=== PATIENT | female | born 1985 | race Asian ===

== ENCOUNTER 2018-09-28 10:42 | Emergency (ER) | payer OTHER ==
[2018-09-28 10:57] VITALS: BP 136/91; PULSE 89; TEMP 98.1; BMI 29.0
[2018-09-28] MEDS ORDERED: HIV POST EXPOSURE PROPHYLAXIS KIT NR ONE (11:29)
[2018-09-28] MEDS ORDERED: AZITHROMYCIN 250 MG TABLET PO ONE (11:29)
--- NOTE | 2018-09-28 11:31 | PDOC ---
History of Present Illness - General Chief Complaint: Vaginal Sxs Stated Complaint: MEDICATION Time Seen by Provider: 09/28/18 10:59 History Source: Patient Exam Limitations: No Limitations - History of Present Illness Initial Comments: 09/28/18 11:30 Last night and had unprotected sex with an unknown person and is unable to identify. Post exposure, HIV disease and he came in requesting all testing and treatment. Understands will need testing for HIV, hepatitis, gonorrhea and chlamydia, syphilis and baseline labs will be taken possible continuation of PEP which she has requested denies vaginal drainage discharge, states was a conceptual experience but nose was related to her intoxication which she denies being problematic. Timing/Duration: unsure, 24 hours Severity: mild, moderate Associated Symptoms: reports: denies symptoms Past History - Travel Traveled outside of the country in the last 30 days: No Close contact w/someone who was outside of country & ill: No - Past Medical History Allergies/Adverse Reactions: Allergies Allergy/AdvReac Type Severity Reaction Status Date / Time No Known Allergies Allergy Verified 09/28/18 10:51 Home Medications: Ambulatory Orders Albuterol Sulfate [Albuterol Sulfate Hfa] 1 - 2 puff IH Q4H 09/28/18 Raltegravir [Isentress] 400 mg PO BID #46 tab 09/28/18 Asthma: Yes COPD: No - Surgical History Gastric Stapling: No - Immunization History Immunization Up to Date: No - Suicide/Smoking/Psychosocial Hx Smoking History: Unknown if ever smoked Have you smoked in the past 12 months: No Information on smoking cessation initiated: No Hx Alcohol Use: No Drug/Substance Use Hx: No Review of Systems - Review of Systems Able to Perform ROS?: Yes Is the patient limited Mexican proficient: Yes Constitutional: Yes: See HPI. No: Symptoms Reported HEENTM: Yes: See HPI. No: Symptoms Reported Respiratory: No: See HPI : Yes: See HPI. No: Symptoms Reported, Burning, Dysuria, Discharge, Hematuria Musculoskeletal: Yes: See HPI. No: Symptoms Reported Integumentary: No: Symptoms Reported Neurological: Yes: See HPI. No: Symptoms reported All Other Systems: Reviewed and Negative *Physical Exam - Vital Signs Last Vital Signs Temp Pulse Resp BP Pulse Ox 98.1 F 89 18 136/91 100 09/28/18 10:47 09/28/18 10:47 09/28/18 10:47 09/28/18 10:47 09/28/18 10:47 - Physical Exam General Appearance: Yes: Nourished, Appropriately Dressed. No: Apparent Distress HEENT: positive: TRISTAN, Normal ENT Inspection, TMs Normal, Pharynx Normal Neck: positive: Supple Respiratory/Chest: positive: Lungs Clear Female Pelvic Exam: positive: normal external exam, cervical os closed, normal adnexa, normal size ovaries. negative: CMT, discharge, lesions, adnexal tenderness Gastrointestinal/Abdominal: positive: Soft. negative: Tender Musculoskeletal: positive: Normal Inspection Extremity: positive: Normal Capillary Refill, Normal Inspection, Tender Integumentary: positive: Normal Color, Dry, Warm Neurologic: positive: quality lab assoc II-XII NML intact, Fully Oriented, Alert, Normal Mood/ Affect, Normal Response, Motor Strength 10/15 ED Treatment Course - LABORATORY CBC & Chemistry Diagram: 09/28/18 11:52 09/28/18 11:52 Medical Decision Making - Medical Decision Making 09/28/18 11:46 Lengthy discussion given patient about the dangers of unprotected sex and all the consequential potential infections may be acquired. Including HIV, , hepatitis, syphilis, herpes, HPV, gonorrhea, chlamydia, understands risks and benefits of HIV medications including Truvada and Viread and chooses to take these medications as has concerns about the status of the partners is unknown. Also understands will be treated for gonorrhea and chlamydia today as those tests will not be resulted for 2-3 days. Understands need follow-up with [facility] doctor in 2-3 months for repeat testing and Pap smear. States most recent Pap smear was negative and has been treated for HPV 5 years ago with what sounds to be a curettage Will be treated today with Rocephin 250 mg IM for 1 time dose of, for gonorrhea , azithromycin 1 g by mouth for 1 time dose for chlamydia, and will be given PEP which includes Truvada and Viread. *DC/Admit/Observation/Transfer Diagnosis at time of Disposition: Exposure to STD - Discharge Dispostion Disposition: HOME Condition at time of disposition: Stable Decision to Admit order: No - Referrals Referrals: Fe Cummings MD, [Primary Care Provider] - - Patient Instructions Printed Discharge Instructions: Facts About Sexually Transmitted Infections Additional Instructions: You been treated today with azithromycin 1 g by mouth for treatment of presumed chlamydia You have been treated with Rocephin 250 mg injection for treatment of presumned gonorrhea The syphilis test, gonorrhea and chlamydia testing will not be completed for the next few days. You may call and leave message for return phone call with lab results. Be sure to be clear with your name, birthdate, and phone number Always use condoms with the partners Followup with [facility] or [facility]D in one week for reevaluation and retesting. Avoid any sexual contact until medications are completed. Always have protected sex. Medications: Have enough Truvada dispensed to last all the course of this prophylaxis treatment YOu have 5 days of Raltegravir and a prescription for Raltegravir has been transmitted to your pharmacy Drink plenty of fluids with these medications. Keep wound clean and watch for any signs of infection and seek care if needed Follow-up with D or [facility] for further instruction and organizing retesting as directed by physician to be seen in 72 hours. for medication evaluation and Further instruction. Your Hepatitis labs will not be available until tomorrow and you may call to leave a message for call back with these results. Generally HIV and hepatitis is retested every 3, 6, and 12 months. - Medications: Have enough Truvada dispensed to last all the course of this prophylaxis treatment YOu have 5 days of Raltegravir and a prescription for Raltegravir has been transmitted to your pharmacy Drink plenty of fluids with these medications. Keep wound clean Follow-up with D or [facility] for further instruction and organizing retesting as directed by physician to be seen in 72 hours. for medication evaluation and Further instruction. Your Hepatitis labs will not be available until tomorrow and you may call [phone] to leave a message for call back with these results. Generally HIV and hepatitis is retested every 3, 6, and 12 months. - Post Discharge Activity Forms/Work/School Notes: Back to Work
[2018-09-28] MEDS ORDERED: cefTRIAXone SODIUM 1 GM VIAL ONE (11:55)
[2018-09-28] MEDS ORDERED: AZITHROMYCIN 250 MG TABLET ONE (11:55)
[2018-09-28] MEDS ORDERED: HIV POST EXPOSURE PROPHYLAXIS KIT PO ONE (11:55)
[2018-09-28] MEDS ORDERED: LIDOCAINE HCL/PF 1% SDV 5ML VIAL ONE (11:57)
[2018-09-28 12:03] LABS: BASO % 0.9 % (0-2.0); EOS % 3.9 % (0-4.5); HEMATOCRIT 43.1 % (32.4-45.2); HEMOGLOBIN 14.5 GM/dL (10.7-15.3); LYMPH % 25.2 % (8-40); MCH 27.1 pg (25.7-33.7); MCHC 33.6 g/dl (32.0-36.0); MEAN CELL VOLUME 80.7 fl (80-96); MEAN PLT VOLUME 8.7 fl (7.5-11.1); PLATELET COUNT 249 K/MM3 (134-434); RBC 5.34 M/mm3 (3.60-5.2); RDW 15.6 % (11.6-15.6); WHITE BLOOD COUNT 6.8 K/mm3 (4.0-10.0)
[2018-09-28 12:04] LABS: HCG,QUALITATIVE URINE Negative
[2018-09-28 12:07] LABS: EPI CELLS 5.9 /HPF (0-5/HPF); PH,URINE 5.5 (5.0-8.0); URINE APPEARANCE CLEAR; URINE BACTERIA 35.2 /hpf (NEGATIVE); URINE BILIRUBIN NEGATIVE (NEGATIVE); URINE CASTS 7 /lpf (0-8); URINE COLOR YELLOW; URINE GLUCOSE (UA) NEGATIVE (NEGATIVE); URINE KETONE NEGATIVE (NEGATIVE); URINE LEUK ESTERASE TRACE (NEGATIVE); URINE NITRITE NEGATIVE (NEGATIVE); URINE PROTEIN NEGATIVE (NEGATIVE); URINE RBC 1 /hpf (0-4); URINE UROBILINOGEN 0.2 mg/dL (0.2-1.0); URINE WBC 3 /hpf (0-5)
[2018-09-28 12:51] LABS: ALBUMIN 4.2 g/dl (3.4-5.0); ALK PHOS 66 U/L (45-117); ANION GAP 6 MMOL/L (8-16); BILIRUBIN,TOTAL 0.8 mg/dL (0.2-1); BLOOD UREA NITROGEN 11 mg/dL (7-18); CALCIUM 9.4 mg/dL (8.5-10.1); CHLORIDE 102 mmol/L (98-107); CHOLESTEROL 260 mg/dL (50-200); CO2 27 mmol/L (21-32); CREATININE 0.7 mg/dL (0.55-1.3); GLUCOSE,RANDOM 106 mg/dL (74-106); LDH 172 U/L (84-246); POTASSIUM 3.9 mmol/L (3.5-5.1); SGOT/AST 20 U/L (15-37); SGPT/ALT 26 U/L (13-61); SODIUM 135 mmol/L (136-145); TOT PROT 8.2 g/dl (6.4-8.2); TRIGLYCERIDES 371 mg/dL (0-150); URIC ACID 5.4 mg/dL (2.6-7.2)
[2018-09-28 12:58] LABS: GAMMA GLUTAMYL TRANSPEPTIDASE 47 U/L (5-85)
[2018-09-29 02:10] LABS: HBsAG SCREEN Negative (Negative)
== END 2018-09-28 14:18 | disposition home or self-care (01) ==
LOC: JERFT 10:42
DX: Z20.2 Contact with and (suspected) exposure to infections with a predominantly sexual mode of transmission (principal); Z77.21 Contact with and (suspected) exposure to potentially hazardous body fluids
CPT/HCPCS: 36415; 80053; 81003; 82465; 82977; 83615; 84100; 84478; 84550; 84703; 85025; 86317; 86593; 86706; 86803; 87340; 87389; 87491; 87591; 99281-25